=== PATIENT | male | born 1945 | race Caucasian/White ===

== ENCOUNTER 2018-08-23 11:49 | Inpatient (IN) | payer MEDICARE, OTHER | END 2018-08-27 13:15 | disposition home or self-care (01) | LOC: ER 11:49 → ED HOLD 14:04 → PCU 3S 19:00 | DX: I48.91 Unspecified atrial fibrillation (principal); I50.33 Acute on chronic diastolic (congestive) heart failure; N17.9 Acute kidney failure, unspecified; I25.10 Atherosclerotic heart disease of native coronary artery without angina pectoris; I35.0 Nonrheumatic aortic (valve) stenosis; D63.1 Anemia in chronic kidney disease ==

== ENCOUNTER 2018-08-29 12:46 | Emergency (ER) | payer MEDICARE, OTHER ==
[~2018-08-29] VITALS: Ht 177.8 cm; Wt 124.0 kg
[~2018-08-29 12:46] MED LIST: ALBU8.5H4 IH; AMIO200T40 PO; APIX5TAB3 PO; ATOR40TA PO; BUDE10.23 IH; COMIN IH; DIGO125T5 PO; DILT180C PO; FLUT16SP2 BOTHNARES; FURO-150 PO; LISI10TA4 PO; METF-436 PO; METO-395 PO; OMEP-84 PO; OXYC-145 PO
[2018-08-29] MEDS ORDERED: ondansetron/PF 4mg/2ml inj IV ONE (12:55)
[2018-08-29] MEDS ORDERED: glycopyrrolate 0.2mg/ml inj IV ONE (12:55)
[2018-08-29] MEDS ORDERED: glucagon, human recombinant 4 MG in normal saline 100ml IV soln 100 ML IV ONE ×2 (12:55)
[2018-08-29 13:20] LABS: BASOPHILS # (AUTO) 0.1 X10'3 (0-0.2); EOSINOPHILS # (AUTO) 0.2 X10'3 (0-0.9); EOSINOPHILS % (AUTO) 2.3 % (0-6); HEMATOCRIT 32.4 % (42.0-52.0); HEMOGLOBIN 10.4 g/dl (14.0-17.9); LYMPHOCYTES # (AUTO) 1.6 X10'3 (1.1-4.8); LYMPHOCYTES % (AUTO) 16.5 % (21-51); MEAN CORPUSCULAR HEMOGLOBIN 26.4 PG (27.0-31.0); MEAN CORPUSCULAR HGB CONC 32.2 g/dL (33.0-36.5); MEAN CORPUSCULAR VOLUME 81.8 FL (78-98); MEAN PLATELET VOLUME 7.3 FL (7.4-10.4); MONOCYTES # (AUTO) 0.8 X10'3 (0-0.9); MONOCYTES % (AUTO) 8.4 % (2-12); NEUTROPHILS # (AUTO) 6.9 X10'3 (1.8-7.7); NEUTROPHILS % (AUTO) 71.8 % (42-75); PLATELET COUNT 489 X10'3 (140-440); RED BLOOD COUNT 3.96 X10'6 (4.70-6.10); RED CELL DISTRIBUTION WIDTH 13.7 % (11.5-14.5); WHITE BLOOD COUNT 9.6 X10'3 (4.5-11.0)
[2018-08-29] MEDS ORDERED: glucagon, human recombinant 1mg kit IV ONE (13:25)
[2018-08-29 13:46] LABS: ALANINE AMINOTRANSFERASE 27 U/L (12-78); ALBUMIN 3.4 G/DL (3.4-5.0); ALBUMIN/GLOBULIN RATIO 0.9 (1.1-1.5); ALKALINE PHOSPHATASE 98 IU/L (46-116); ANION GAP 11 (8-16); ASPARTATE AMINO TRANSFERASE 17 U/L (10-37); BILIRUBIN,TOTAL 0.4 MG/DL (0.1-1.0); BLOOD UREA NITROGEN 25 MG/DL (7-18); BUN/CREATININE RATIO 11.3 (5.4-32.0); CALCIUM 8.8 MG/DL (8.5-10.1); CHLORIDE 103 MMOL/L (99-107); CREATININE 2.22 MG/DL (0.60-1.10); GLUCOSE 169 MG/DL (70-104); POTASSIUM 4.7 MMOL/L (3.5-5.1); SODIUM 138 MMOL/L (135-145); TOTAL CARBON DIOXIDE 24.3 MMOL/L (24-32); TOTAL PROTEIN 7.4 G/DL (6.4-8.2); eGFR 29 ML/MIN
[2018-08-29] MEDS ORDERED: DIGO125T97 PO (13:46)
[2018-08-29] MEDS ORDERED: AMIO200T40 PO ×2 (13:46→18:49)
[2018-08-29] MEDS ORDERED: APIX5TAB3 PO (13:46)
[2018-08-29] MEDS ORDERED: METO100T7 PO (13:46)
[2018-08-29] MEDS ORDERED: METH1TAB32 PO (13:47)
[2018-08-29 13:52] LABS: MAGNESIUM 1.6 MG/DL (1.5-2.4)
[2018-08-29] MEDS ORDERED: normal saline 1000ML IV soln IVB ONE ×2 (13:55→14:50)
[2018-08-29] MEDS ORDERED: ISOPROTERENOL IV SCH (14:10)
[2018-08-29] MEDS ORDERED: NORMAL SALINE IV SCH (14:10)
--- NOTE | 2018-08-29 14:39 | NUR ---
Isoproteranol started per Dr. Anthony order. Target HR is 50. Started at 2mcg/min and orders to double q 10 min until target reached.
--- NOTE | 2018-08-29 18:00 | NUR ---
Turned off Isuprel per MD order to observe Pt HR without med.
[2018-08-29] MEDS ORDERED: METO50TA17 PO (18:49)
[2018-08-29 18:53] VITALS: BP 152/69
== END 2018-08-29 19:07 | disposition home or self-care (01) ==
LOC: ER 12:47
DX: R00.1 Bradycardia, unspecified (principal); I48.91 Unspecified atrial fibrillation; I25.10 Atherosclerotic heart disease of native coronary artery without angina pectoris; E78.00 Pure hypercholesterolemia, unspecified; I25.2 Old myocardial infarction; E11.9 Type 2 diabetes mellitus without complications; Z95.1 Presence of aortocoronary bypass graft; Z90.89 Acquired absence of other organs; Z79.899 Other long term (current) drug therapy
CPT/HCPCS: 36415; 71045; 80053; 80162; 82948; 83735; 83880; 84484; 85025; 93005; 96365; 96366; 96375; 99284; J1610; J2405; J7030; J3490

== ENCOUNTER 2024-09-10 06:59 | Day surgery (SDC) | payer OTHER ==
[2024-09-09 14:43] LABS: BASOPHILS # (AUTO) 0.2 X10'3 (0-0.2); BASOPHILS % (AUTO) 1.1 % (0-1); EOSINOPHILS # (AUTO) 0.2 X10'3 (0-0.9); EOSINOPHILS % (AUTO) 1.7 % (0-6); HEMOGLOBIN 12.3 g/dl (14.0-17.9); LYMPHOCYTES # (AUTO) 1.3 X10'3 (1.1-4.8); LYMPHOCYTES % (AUTO) 9.2 % (21-51); MEAN CORPUSCULAR HEMOGLOBIN 27.3 PG (27.0-31.0); MEAN CORPUSCULAR HGB CONC 31.5 g/dL (33.0-36.5); MEAN CORPUSCULAR VOLUME 86.5 FL (78-98); MEAN PLATELET VOLUME 7.4 FL (7.4-10.4); MONOCYTES # (AUTO) 0.9 X10'3 (0-0.9); MONOCYTES % (AUTO) 6.5 % (2-12); NEUTROPHILS # (AUTO) 11.1 X10'3 (1.8-7.7); NEUTROPHILS % (AUTO) 81.5 % (42-75); PLATELET COUNT 400 X10'3 (140-440); RED BLOOD COUNT 4.51 X10'6 (4.70-6.10); RED CELL DISTRIBUTION WIDTH 13.1 % (11.5-14.5); WHITE BLOOD COUNT 13.7 X10'3 (4.5-11.0)
[2024-09-09 15:04] LABS: ALBUMIN 3.9 G/DL (3.4-5.0); ANION GAP 8 (8-16); BLOOD UREA NITROGEN 35 MG/DL (7-18); BUN/CREATININE RATIO 21.2 (10.0-20.0); CALCIUM 8.9 MG/DL (8.5-10.1); CHLORIDE 106 MMOL/L (99-107); CREATININE 1.65 MG/DL (0.60-1.10); GLUCOSE 108 MG/DL (70-104); POTASSIUM 4.9 MMOL/L (3.5-5.1); SODIUM 140 MMOL/L (135-145); TOTAL CARBON DIOXIDE 25.8 MMOL/L (24-32); eGFR 41 ML/MIN
[2024-09-09 15:05] LABS: PROTHROMBIN TIME 10.9 SECONDS (9.0-12.0)
[2024-09-10] VITALS (9 sets, daily range): BP systolic 101–139; BP diastolic 48–56; PULSE 52–76; RESP 12–16; O2SAT 94–100
[~2024-09-10] VITALS: Ht 175.3 cm; Wt 110.7 kg
[~2024-09-10 06:59] MED LIST changes: +AMI200T PO; -AMIO200T40 PO; -DIGO125T5 PO; +DIGO125T97 PO; -DILT180C PO; +DILT180C90 PO; +LISI10TA27 PO; -LISI10TA4 PO; +METH1TAB32 PO; -METO-395 PO; +METO100T7 PO; +METO50TA17 PO
[2024-09-10] MEDS ORDERED: diphenhydrAMINE 25mg capsule PO ONE (07:20)
[2024-09-10] MEDS ORDERED: LORazepam 0.5 MG tablet PO ONE (07:20)
[2024-09-10] MEDS ORDERED: atropine 0.1mg/ml 10ml syringe IV ONE (07:20)
[2024-09-10] MEDS ORDERED: AMI200T PO (07:58)
[2024-09-10] MEDS ORDERED: ROSU40TA89 PO (07:58)
[2024-09-10] MEDS ORDERED: PROP40TA72 PO (07:58)
[2024-09-10] MEDS ORDERED: LEVO75TA PO (07:58)
[2024-09-10] MEDS ORDERED: SENN-360 PO (08:05)
[2024-09-10] MEDS ORDERED: LISI20TA28 PO (08:05)
[2024-09-10] MEDS ORDERED: METF-436 PO (08:05)
[2024-09-10] MEDS ORDERED: DULO60CA59 PO (08:05)
[2024-09-10] MEDS ORDERED: FERR324T23 PO (08:12)
[2024-09-10] MEDS ORDERED: CARB1TAB44 PO (08:17)
[2024-09-10] MEDS: amiodarone 150mg/dext, iso-os 100 ML IV ONE (11:11)
[2024-09-10] MEDS: MIDAZolam 1mg/ml 10ml vial IV ONE (11:11)
[2024-09-10] MEDS: morphine 10mg/ml inj. IV ONE (11:11)
[2024-09-10] MEDS: normal saline 1000ml 1,000 ML IV SCH (11:12)
== END 2024-09-10 12:20 | disposition home or self-care (01) ==
LOC: SSTAY O 06:59
PROVIDERS: ATTEND Internal Medicine Cardiovascular Disease
DX: I48.19 Other persistent atrial fibrillation (principal); I48.0 Paroxysmal atrial fibrillation; I48.92 Unspecified atrial flutter; I25.10 Atherosclerotic heart disease of native coronary artery without angina pectoris; E78.5 Hyperlipidemia, unspecified; I44.1 Atrioventricular block, second degree; E11.9 Type 2 diabetes mellitus without complications; Z95.1 Presence of aortocoronary bypass graft; I50.40 Unspecified combined systolic (congestive) and diastolic (congestive) heart failure; I42.9 Cardiomyopathy, unspecified; I34.0 Nonrheumatic mitral (valve) insufficiency; I27.20 Pulmonary hypertension, unspecified; I11.0 Hypertensive heart disease with heart failure
CPT/HCPCS: 36415; 80048; 82948; 85025; 85610; 92960; 93005; J0282; J2250; J2274; J7030